=== PATIENT | male | born 1960 | race Caucasian/White ===

== ENCOUNTER → 2021-01-20 09:14 | Outpatient (CLI) | payer SELFPAY ==
--- NOTE | 2021-01-20 16:54 | PFTCOMP ---
COMPLETE PULMONARY FUNCTION TEST INTERPRETATION Brief HPI: Patient is a 60 year old male, currently under the care of Dr. Tracy, who presents to [facility] for complete pulmonary function tests secondary to diagnosis of COPD. Respiratory therapist reports good effort and reproducible results. Patient did have a syncopal event associated with exhalation Interpretation: Forced expiration spirometry shows a moderate large airways obstructive ventilatory defect with an FEV1 of 67% predicted. There is a significant bronchodilator response in FVC and FEV1 by strict ATS criteria. Spirograms are of good quality and plateau slowly, indicating slowly emptying areas of the lungs. The respiratory flow volume loop shows decreased expiratory flow rates at all lung volumes consistent with airway obstruction. Lung volumes by body plethysmography show a normal total lung capacity at 5.13 L, 98% predicted. All other lung volumes are within normal limits. Diffusion capacity by carbon monoxide is normal at 98% predicted. The airway resistance is elevated. No previous pulmonary function tests were available for review. Impression: Partially reversible moderate large airways obstructive ventilatory defect in a pattern consistent with COPD/asthma overlap syndrome
== END ==
PROVIDERS: PCP Family Medicine; Referring Provider Preventive Medicine Public Health & General Preventive Medicine; Visit Provider Preventive Medicine Public Health & General Preventive Medicine
DX: J44.9 Chronic obstructive pulmonary disease, unspecified (principal)
CPT/HCPCS: 94060; 94726; 94729

== ENCOUNTER 2021-05-01 13:29 | Outpatient (CLI) | payer SELFPAY ==
[2021-05-01 13:45] VITALS: PULSE 100; PULSE 94; PULSE 95; PULSE 97; PULSE 98; PULSE 99; O2SAT 92; O2SAT 93; O2SAT 96; O2SAT 98
--- NOTE | 2021-05-02 13:30 | PCM.PSN.6M ---
PSN 6 Minute Walk Test 6 Minute Walk Test 6 Minute Walk Test: 6 Minute Walk Test PSN:6-Minute Walk Test Start: 05/01/21 14:03 Freq: Status: Active Protocol: [id number].[id number] Document 05/01/21 13:45 EW (Rec: 05/01/21 14:05 EW [id number]) 6 Minute Walk Test Date Performed 05/01/21 Time Performed 13:45 Height 5 ft 4 in Weight: 74.843 kg Weight in Pounds 165.[address]: Isaiah Kulkarni Assistive device used: None Pre-test Oxygen Delivery Method Room Air Pulse Ox (%) 98 Pulse Rate (60-100 beats/min) 98 Dyspnea Patricia Scale (0-10) 0 Exertion Patricia Scale (6-20) 6 1st minute Oxygen Delivery Method Room Air Pulse Ox (%) 93 Pulse Rate (60-100 beats/min) 95 2nd minute Oxygen Delivery Method Room Air Pulse Ox (%) 92 Pulse Rate (60-100 beats/min) 97 3rd minute Oxygen Delivery Method Room Air Pulse Ox (%) 93 Pulse Rate (60-100 beats/min) 98 4th minute Oxygen Delivery Method Room Air Pulse Ox (%) 92 Pulse Rate (60-100 beats/min) 99 5th minute Oxygen Delivery Method Room Air Pulse Ox (%) 92 Pulse Rate (60-100 beats/min) 100 6th minute Oxygen Delivery Method Room Air Pulse Ox (%) 92 Pulse Rate (60-100 beats/min) 99 Post-test Oxygen Delivery Method Room Air Pulse Ox (%) 96 Pulse Rate (60-100 beats/min) 94 Dyspnea Patricia Scale (0-10) 0 Exertion Patricia Scale (6-20) 8 Full Laps Walked 18 Partial Lap, Number of Tiles Walked 34 Total Distance Walked (ft) 1096 Interpretation Interpretation: The patient ambulated 1096 feet over the course of 6 minutes beginning on room air without assistive devices. Pretesting oxygen saturation was noted to be 98% on room air. With ambulation, the francisco javier oxygen saturation was 92%. This represents a significant exertional oxygen desaturation. Recommendations Recommendations: There is no indication for the use of supplemental oxygen at this time. However, close interval follow-up is recommended, given the degree of oxygen desaturation noted during this study.
== END 2021-05-01 23:59 | disposition home or self-care (01) ==
PROVIDERS: PCP Family Medicine; Referring Provider Internal Medicine Critical Care Medicine; Visit Provider Internal Medicine Critical Care Medicine
DX: J44.9 Chronic obstructive pulmonary disease, unspecified (principal)
CPT/HCPCS: 94618